=== PATIENT | female | born 1965 | race Caucasian/White ===

== ENCOUNTER 2016-08-12 21:49 | Observation (INO) | payer OTHER ==
[~2016-08-12] VITALS: Ht 167.6 cm; Wt 80.0 kg
[2016-08-13] VITALS (11 sets, daily range): BP systolic 94–136; BP diastolic 49–78
--- NOTE | 2016-08-13 00:06 | DIAGNOSTIC IMAGING REPORT ---
PROCEDURE: US ABDOMEN ULTRASOUND-LIMITED INDICATION: Right upper quadrant pain, initial encounter TECHNIQUE: Yepez scale and color Doppler sonographic images of the abdomen were obtained. COMPARISON: None. FINDINGS: Gallbladder packed with gallstones, associated with thickened gallbladder wall (4.2 mm) and gallbladder wall hyperemia. CBD measures 4.7 mm. Normal liver and pancreas. Aorta and IVC are patent. Normal hepatopetal flow. Right kidney measures 10.9 cm with a 2.6 cm upper pole simple cyst. IMPRESSION: 1. Multiple gallstones with wall thickening and wall hyperemia suggestive of acute cholecystitis 2. Right renal cyst
--- NOTE | 2016-08-13 00:14 | ED ORDER SUMMARY ---
..... Patient: ABRAHAN MCKNIGHT OrderSheet [facility] VisitID: [id number] [place] [address] 51y, F Registration Date/Time: 08/12/2016 ORDER SHEET Weight: 78.4 kg (stated) Allergies: Percocet GENERAL ORDERS: US Abdomen Limited (No) Urgent (22:24 08/12/2016 HBivens A.R.N.P.) (Ack 22:25 [facility]) (23:51 Jordan) CBC w Diff Urgent (22:24 08/12/2016 HBivens A.R.N.P.) (Ack 22:25 [facility]) (22:42 RCollier R.N.) CMP Urgent (22:08/12/2016 HBivens A.R.N.P.) (Ack 22:25 [facility]) (22:42 RCollier R.N.) UA-Culture if indicated Urgent (22:24 08/12/2016 HBivens A.R.N.P.) (Ack 22:25 [facility]) (0:25 RCollier R.N.) Amylase Urgent (22:08/12/2016 HBivens A.R.N.P.) (Ack 22:25 [facility]) (22:42 RCollier R.N.) Lipase Urgent (22:08/12/2016 HBivens A.R.N.P.) (Ack 22:25 [facility]) (22:42 RCollier R.N.) Urine Drug Screen Urgent (22:08/12/2016 HBivens A.R.N.P.) (22:25 HBivens A.R.N.P.) (Cancelled: Other22:25 HBivens A.R.N.P.) (Ack 22:25 [facility]) MEDICATION ORDERS: GI Cocktail WHITE PO 30 mL with Lidocaine Viscous Mouth/Throat 15 mL, Maalox Plus Oral 15 mL (NOW) (22:23 08/12/2016 HBivens A.R.N.P.) (Ack 22:25 RCollier R.N.) (22:40 RCollier R.N.) Nicoderm Topical 21 mg (NOW) (00:25 08/13/2016 RCollier R.N. per protocol) (0:25 RCollier R.N.) IV FLUIDS: Toradol IV 30 mg (NOW) (22:23 08/12/2016 HBivens A.R.N.P.) (Ack 22:25 RCollier R.N.) (22:41 RCollier R.N.) IV Saline Lock (22:24 08/12/2016 HBivens A.R.N.P.) (Ack 22:25 RCollier R.N.) Zofran IV 4 mg (NOW) (22:41 08/12/2016 RCollier R.N. verbal order read back to HBivens A.R.N.P.) (22:42 RCollier R.N.) Morphine IV 4 mg (PRN pain > 5/10 every 2 hours) (00:14 08/13/2016 Jeffrey Stewart) (Ack 0:15 RCollier R.N.) ORDER SHEET NOTES: [Electronically signed by Rona Browning R.N. (00:49 08/13/2016)] [Electronically signed by Sidra Villarreal.R.N.PLance (13:50 08/14/2016)] [Electronically locked/signed by Rona Browning R.N. (00:49 08/13/2016)]
--- NOTE | 2016-08-13 00:14 | ED ORDER SUMMARY ---
..... Patient: ABRAHAN MCKNIGHT OrderSheet [facility] VisitID: [id number] [place] [address] 51y, F Registration Date/Time: 08/12/2016 ORDER SHEET Weight: 78.4 kg (stated) Allergies: Percocet GENERAL ORDERS: US Abdomen Limited (No) Urgent (22:24 08/12/2016 HBivens A.R.N.P.) (Ack 22:25 [facility]) (23:51 Jordan) CBC w Diff Urgent (22:24 08/12/2016 HBivens A.R.N.P.) (Ack 22:25 [facility] Operator) (22:42 RCollier R.N.) CMP Urgent (22:08/12/2016 HBivens A.R.N.P.) (Ack 22:25 [facility]) (22:42 RCollier R.N.) UA-Culture if indicated Urgent (22:24 08/12/2016 HBivens A.R.N.P.) (Ack 22:25 [facility] Operator) (0:25 RCollier R.N.) Amylase Urgent (22:08/12/2016 HBivens A.R.N.P.) (Ack 22:25 [facility] Ed[facility] Operator) (22:42 RCollier R.N.) Lipase Urgent (22:08/12/2016 HBivens A.R.N.P.) (Ack 22:25 [facility] Operator) (22:42 RCollier R.N.) Urine Drug Screen Urgent (22:08/12/2016 HBivens A.R.N.P.) (22:25 HBivens A.R.N.P.) (Cancelled: Other22:25 HBivens A.R.N.P.) (Ack 22:25 [facility]) MEDICATION ORDERS: GI Cocktail WHITE PO 30 mL with Lidocaine Viscous Mouth/Throat 15 mL, Maalox Plus Oral 15 mL (NOW) (22:23 08/12/2016 HBivens A.R.N.P.) (Ack 22:25 RCollier R.N.) (22:40 RCollier R.N.) Nicoderm Topical 21 mg (NOW) (00:25 08/13/2016 RCollier R.N. per protocol) (0:25 RCollier R.N.) IV FLUIDS: Toradol IV 30 mg (NOW) (22:23 08/12/2016 HBivens A.R.N.P.) (Ack 22:25 RCollier R.N.) (22:41 RCollier R.N.) IV Saline Lock (22:24 08/12/2016 HBivens A.R.N.P.) (Ack 22:25 RCollier R.N.) Zofran IV 4 mg (NOW) (22:41 08/12/2016 RCollier R.N. verbal order read back to HBivens A.R.N.P.) (22:42 RCollier R.N.) Morphine IV 4 mg (PRN pain > 5/10 every 2 hours) (00:14 08/13/2016 Jeffrey Stewart) (Ack 0:15 RCollier R.N.) ORDER SHEET NOTES: [Electronically signed by Rona Browning R.N. (00:49 08/13/2016)] [Electronically signed by Sidra Villarreal.R.N.PLance (13:50 08/14/2016)] [Electronically locked/signed by Rona Browning R.N. (00:49 08/13/2016)]
--- NOTE | 2016-08-13 00:14 | ED NURSING NOTES ---
Clinical Report - Nurses [facility] [place] [address] 08/12/2016 21:51 [id number] TRI[facility] Triage time 22:10. Acuity: LEVEL 4. Chief Complaint: ABDOMINAL PAIN and NAUSEA. Alert. No acute distress. --22:15 Rona Browning R.N. 22:10 08/12/16. BP: 135/79. HR: 79. RR: 16. O2 saturation: 96% on room air. Temp: 98.6 F (oral). Chavarria-Lu pain scale: 4/10. --22:15 Rona Browning R.N. Weight: 78.4 kg stated. Height/Length: 63 inches Per Patient. BMI: 30.6. --22:14 Rona Browning R.N. Medications None. --22:12 Rona Browning R.N. Allergies Percocet.(itching) --22:12 Rona Browning R.N. History Arrived by private vehicle. Historian: patient. Primary physician (Yumiko). ( pt has had pain for 7 months. saw MD, had upper GI scope on 06-26-16, missed follow up appointment and pain became worse today). Onset. (about 7 months ago). 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 PAST MEDICAL HX: Immunizations: up-to-date. SOCIAL HX: Heavy tobacco smoker- 1-2 packs per day. Occasional alcohol use. No drug use. NUTRITIONAL RISK ASSESSMENT: The nutritional risk assessment revealed no deficiencies. FUNCTIONAL ASSESSMENT: Functional assessment: no impairments noted. --22:15 Rona Browning R.N. PROBLEMS: Chronic Back Pain. Reflux. --22:13 Rona Browning R.N. ADDITIONAL SURGERIES: Back Surgery. Hysterectomy. Knee Surgery. Shoulder Surgery. Upper GI scope. --22:13 Rona Browning R.N. Interventions ID band on patient. To treatment room. --22:15 Rona Browning R.N. PHYSICAL ASSESSMENT Ambulatory to room. Patient gowned. GENERAL / NEURO / PSYCH: Alert. Oriented X 4. Appears in no acute distress. HEENT: Mucous membranes are pink. RESPIRATORY: Respirations not labored. CVS: Capillary refill less than 2 seconds. SKIN: Skin is warm and dry. --22:15 Rona Browning R.N. NURSING PROGRESS NOTES Head of bed elevated. Two patient identifiers checked. Call light placed in reach. Side rails up x 1. Bed placed in lowest position. Brakes of bed on. --22:15 Rona Browning R.N. Patient ready for evaluation- chart flagged. --22:16 Rona Browning R.N. 22:30 08/12/2016 GI COCKTAIL WHITE (Simethicone) PO Oral Suspension 30 mL given. Allergies verified and confirmed 5 rights. --22:40 Rona Browning R.N. 22:35 08/12/2016 Site #1 started via IV in the right antecubital space with an 20g angiocath, with aseptic technique and good blood return; one attempt. Blood drawn: rainbow set. Labeled in the presence of the patient and sent to the lab. Saline lock flushed with 10 mL saline. --22:40 Rona Browning R.N. 22:39 08/12/2016 Zofran (Ondansetron HCl) IVP 4 mg given over 30 second(s) via site #1. Allergies verified and confirmed 5 rights. IV patency established. IV site checked: no pain, redness, or swelling. IV flushed thoroughly pre- and post-medication administration. IVP given by RN. --22:42 Rona Browning R.N. 22:40 08/12/2016 Toradol IVP 30 mg given over 1 minute(s) via site #1. Allergies verified and confirmed 5 rights. IV patency established. IV site checked: no pain, redness, or swelling. IV flushed thoroughly pre- and post-medication administration. IVP given by RN. --22:41 Rona Browning R.N. Patient ID band checked for patient name and birthdate: patient confirmed. Instructions provided to collect clean catch urine and patient verbalized understanding. Clean catch urine collected with return of ruth-colored clear urine; sample sent to lab. Specimen labeled in the presence of the patient. --00:22 Rona Browning R.N. 00:25 08/13/2016 NICODERM Topical Patch/Pad 21 mg. Applied to the left upper back. Allergies verified and confirmed 5 rights. --00:25 Rona Browning R.N. 00:25 08/13/16. BP: 111/64. HR: 75. RR: 15. O2 saturation: 98% on room air. Pain level now: 0/10. Additional comments: pt talking on the phone, laughing. refuses Morphine at this time, states "I'm fine". --00:27 Rona Browning R.N. 00:47 08/13/2016 Site #[address] upon admission. Flushed with 10 mL saline. --00:47 Rona Browning R.N. DISPOSITION / DISCHARGE Report was given to a nurse via a phone call. Report included patient's care, treatment, medications, reviewed medication reconcilliation, and condition (including any recent changes or anticipated changes). All questions were answered. Report was acknowledged. --00:37 Rona Browning R.N. 00:37 08/13/16. BP: 103/55. HR: 65. RR: 15. O2 saturation: 98% on room air. Pain level now: 0/10. --00:38 Rona Browning R.N. Admitted to Acute Care. Transported via stretcher by transport team with IV. Patient's personal items include: shoes, clothing; items were placed in belongings bag and transported with the patient. Collection of belongings was witnessed by 1 nurse. --00:48 Rona Browning R.N. Locked/Released at 08/13/2016 0:49 by Rona Browning R.N.
--- NOTE | 2016-08-13 00:14 | ED CLINICAL REPORT ---
Clinical Report - Physicians/Mid Levels [facility] [address] [place] [address] 08/12/2016 21:51 Patient: ABRAHAN MCKNIGHT Time Seen: 22:18; initial patient contact, initial documentation, patient care assumed. Arrived- By private vehicle. Historian- patient. HISTORY OF PRESENT ILLNESS Chief Complaint: ABDOMINAL PAIN. At its maximum, severity described as severe. When seen in the E.D., severity described as severe. Modifying factors- worsened by food. Not relieved by anything. It is described as "pain", sharp and burning and it is described as located in the right upper quadrant and epigastric area and radiating to the upper back. This started about 7 months ago and is still present and worsening. It was abrupt in onset and has been intermittent. The patient has had nausea. No loss of appetite, vomiting or diarrhea. No additional abdominal pain. No recent travel. Similar symptoms previously: Chronically, milder. Recent medical care: The patient was seen recently in the office. ( had upper gi scope done in jun, found mild burn ring on bottom of esophagus). REVIEW OF SYSTEMS No constipation, black stools, hematemesis, difficulty with urination or pain with urination. No urinary frequency, fever, chest pain or difficulty breathing. Denies current . All systems otherwise negative, except as recorded above. PAST HISTORY See nurses notes. PROBLEMS: Chronic Back Pain. Reflux. --22:13 Rona Browning R.N. ADDITIONAL SURGERIES: Back Surgery. Hysterectomy. Knee Surgery. Shoulder Surgery. Upper GI scope. --22:13 Rona Browning RJeremy. SOCIAL HISTORY Heavy tobacco smoker. Occasional alcohol use. No drug use. No recent travel. Is a local resident. FAMILY HISTORY Negative. ADDITIONAL NOTES The nursing notes have been reviewed with agreement regarding the chief complaint, HPI, ROS, PMH and patient medications and allergies. PHYSICAL EXAM Vital Signs: 08/12/2016 22:10 BP: 135/79. HR: 79. RR: 16. O2 saturation: 96%. Temp: 98.6 F. Chavarria-Lu pain scale: 4/10. Have been reviewed as normal and appear to be correct. Appearance: Alert. Oriented X3. No acute distress. Eyes: Pupils equal, round and reactive to light. Eyes normal inspection. Neck: Normal inspection. Neck supple. CVS: Normal heart rate and rhythm. Heart sounds normal. Pulses normal. Respiratory: No respiratory distress. Breath sounds normal. Chest nontender. Abdomen: Soft. Mild tenderness in the right upper quadrant and epigastric area. Bowel sounds normal. No organomegaly. No mass. Tenderness present. Back: Normal inspection. Skin: Skin warm and dry. Normal skin color. No rash. Normal skin turgor. Extremities: Extremities exhibit normal ROM. No lower extremity edema. Neuro: Oriented X 3. No motor deficit. No sensory deficit. PROGRESS AND PROCEDURES Course of Care: 22:42 08/12/16. reported off to Dr Hutchinson whom is assuming care. Differential Diagnosis: I considered gastritis, peptic ulcer disease, gastroesophageal reflux disease, biliary colic, cholecystitis, cholelithiasis, hepatitis, pancreatitis, common bile duct obstruction, cholangitis, bile leak and hernia as a possible cause of abdominal pain in this patient. This is a partial list of diagnoses considered. Above considerations are based on history, physical exam, laboratory data and other information. Differential diagnosis was discussed with patient. Disposition: Condition: good and stable. (Electronically signed by Sidra Villarreal A.R.N.P. 08/14/2016 13:50)
--- NOTE | 2016-08-13 05:56 | NUR ---
Pt arrived to unit at 0100, oriented to room and made as comfortable as possible. Pt slept for rest of shift. No complaints of pain or nausea upon arrival to unit. VSS on room air. NPO since midnight. Bowel sounds present. Pre-op packet in chart.
--- NOTE | 2016-08-13 07:13 | CONSULTATION REPORT ---
DATE OF CONSULTATION: 08/13/2016 CHIEF COMPLAINT: 1. Right upper quadrant abdominal pain HISTORY OF PRESENT ILLNESS: A 51-year-old female with right upper quadrant abdominal pain, which began in January/February of 2016. Initially it was on and off occurring maybe 2 to 3 times per week. Then it became more and more prominent on a daily basis, which was relieved by lying down. Over a period of time, the pain worsened little by little. She eventually saw Dr. Viramontes at the [facility] who performed upper GI endoscopy. The patient was noted to have a Schatzki ring and never had an ultrasound. The pain became so severe yesterday that she sought medical treatment in the emergency department. She complained of nausea and chills, but no fever or vomiting. The pain is located in the right upper quadrant radiating into her back and epigastrium. She denies any tatiana-colored stool or dark urine. ALLERGIES: 1. PERCOCET causes her itching. MEDICATIONS: She is presently on no medications. MEDICAL/SURGICAL HISTORY: Significant for tubal ligation, hysterectomy, bilateral oophorectomy, bilateral shoulder surgeries, left knee repair ACL, she is status post L4-L5 diskectomy. SOCIAL HISTORY: She is . She has 2 sons, 1 daughter that are alive and well. The patient smokes one half to 1 pack of cigarettes a day, does not drink alcohol, drinks 16-20 ounces of coffee per day. Does not use recreational drugs. She is a housewife. FAMILY HISTORY: Mother age 72 of complications of heart disease, diabetes. Father at age unknown, complications of alcohol abuse, cirrhosis. Six brothers and 3 sisters, all alive and well. REVIEW OF SYSTEMS: She is G3, P0, AB 3, Menarche age she cannot remember. First full-term age 20. Last menstrual period 2001. Last Pap smear in 2001. Last mammogram, she has never had one. Colonoscopy, never had one. Denies any history of hepatitis, jaundice, or rheumatic fever, blood transfusion, heart murmurs requiring antibiotics or bleeding tendencies. Remaining 12-point review of systems is negative. PHYSICAL EXAMINATION: GENERAL: The patient is awake, alert, conversant and does not appear to be in any acute distress. VITAL SIGNS: Blood pressure is 116/64, pulse 72, respirations 18, temperature is 97.5. HEENT: Normocephalic, atraumatic. Pupils equal and reactive. No scleral icterus. External auditory canals clear. No nasal septal defect or discharge. Throat is clear. Moist mucous membranes. NECK: Supple. No JVD, carotid bruit or adenopathy. LUNGS: Clear. No rales, rhonchi, or wheezing. Room air O2 saturation 96%. HEART: Regular rhythm, no murmurs. ABDOMEN: Nondistended. Positive bowel sounds. Minimal tenderness right upper quadrant. No masses appreciable. No hepatosplenomegaly. EXTREMITIES: No pretibial or ankle edema. SKIN: Warm and dry with no peripheral cyanosis, no evidence of icterus. NEUROLOGIC: The patient is grossly intact with no focal neurological deficits. LYMPHATICS: No cervical, supraclavicular, axillary, or groin adenopathy. LAB/IMAGING: White count 11.3, hemoglobin and hematocrit 14.8 and 42.2 respectively. Electrolytes: Sodium 141, potassium 4.3, chloride 102, bicarbonate 25, glucose 90, BUN 14, creatinine 0.9, total bilirubin 0.2, alkaline phosphatase 73, lipase 321. Ultrasound showing multiple stones, gallbladder wall thickening and hyperemia suggestive of acute cholecystitis, cholelithiasis. IMPRESSION: 1. Symptomatic cholecystitis, possible acute cholecystitis PLAN: Laparoscopic cholecystectomy. The procedure has been explained to the patient, including potential risk, but not exclusive of, hemorrhage, transfusion, conversion to open procedure, bile leak, damage to local structures, damage to major ductal system requiring rerouting of the small intestine to the liver, pancreatitis, retained stone, pulmonary embolus, pneumonia just to name a few. The patient understands and agrees to proceed and at this point, all questions answered to her satisfaction and we will schedule her urgently.
--- NOTE | 2016-08-13 15:52 | NUR ---
PT. LEFT FOR OR AT 1500 WITH BOARDING PASS, EMPTIED BLADDER. VSS
--- NOTE | 2016-08-13 16:45 | DIAGNOSTIC IMAGING REPORT ---
PROCEDURE: XR INTRAOPERATIVE LAP ISMAEL INDICATION: IOC TECHNIQUE: Intraoperative fluoroscopy provided for Dr. Faulkner performing an intraoperative cholangiogram following cholecystectomy. Total fluoroscopy time 0.08-minute Cumulative dose 2.7 mGy. COMPARISON: None. FINDINGS: Two intraoperative fluoroscopic spot images of the right upper quadrant of the abdomen demonstrate cannulation of the cystic duct stump and opacification of the intrahepatic and extrahepatic biliary tree. There are no filling defects. There is normal passage of contrast into the duodenum. IMPRESSION: 1. Negative intraoperative cholangiogram.
[2016-08-13] MEDS ORDERED: HYCET1 ML PO (16:46)
--- NOTE | 2016-08-13 16:47 | Provider's Discharge Care Plan ---
Problem, Goal, Plan Problem List 1. S/P LAP ISMAEL Goals: Improve disease control, Therapeutic intervention Instructions: Follow up as directed, Take meds as directed
--- NOTE | 2016-08-13 16:47 | Provider's Discharge Care Plan ---
Problem, Goal, Plan Problem List 1. S/P LAP ISMAEL Goals: Improve disease control, Therapeutic intervention Instructions: Follow up as directed, Take meds as directed
--- NOTE | 2016-08-13 17:07 | NUR ---
WHITE METAL NOSE JEWERLY REMOVED, PLACED IN DENTURE CUP, LABELED AND TAKE TO PACU.
--- NOTE | 2016-08-13 17:08 | NUR ---
PATIENT ARRIVED TO PACU AT 1657. SPONT RESP. AROUSABLE. VITALS STABLE. HUMIDIFIED O2 ADMINISTERED. PATIENT PAINFUL. FENTENYL ADMINISTERED BY ANESTHESIA PROVIDER. PATIENT NAUSEATED. ONDANSETRON IV ADMINISTERED PER ORDERS BY RN. PATIENT NOW RESTING QUIETLY. WILL CONTINUE TO MONITOR.
--- NOTE | 2016-08-13 18:37 | NUR ---
PT. UP TO FLOOR AT 1830, BT HYPO, LUNG SOUNDS CTAB, DIMINISHED IN BASES AND HRR. PATIENT DROWSY, VSS, 02 SATS 97% ON2L NC, STATES MILD PAIN TO BACK, GIVEN WARM BLANKET FOR ABD. AND POSITIONED TO WHERE PATIENT STATES BACK PAIN IS TOLERABLE. WCTM
--- NOTE | 2016-08-13 19:20 | OPERATIVE REPORT ---
DATE OF SURGERY: 08/13/2016 SURGEON: Yonatan Faulkner III, MD SERVICE ORDER CLERK: Rafy Gonzalez MD PREOPERATIVE DIAGNOSES: 1. Symptomatic cholelithiasis 2. Subacute cholecystitis POSTOPERATIVE DIAGNOSES: 1. Symptomatic cholelithiasis 2. Subacute cholecystitis PROCEDURES PERFORMED: 1. Laparoscopic cholecystectomy 2. Fluoroscopic intraoperative cholangiogram ANESTHESIA: General endotracheal. COMPLICATIONS: No intraoperative or anesthetic complications. ESTIMATED BLOOD LOSS: None. FLUIDS: 600 mL of Lactated Ringer's. PATHOLOGY SPECIMEN: Sent to laboratory, gallbladder and contents. INDICATIONS: A 51-year-old female with several-month history of progressive right upper quadrant abdominal pain, worsened, came to the emergency department, was noted to have a white count of 11,000, ultrasound of the gallbladder showed multiple stones, thickened gallbladder wall and hyperemia consistent with acute cholecystitis. On physical examination, she had a negative Allen sign. She was scheduled for a laparoscopic cholecystectomy. SURGICAL FINDINGS: The patient noted to have cholelithiasis. Fluoroscopic intraoperative cholangiogram showed free flow of contrast material into the duodenum. No evidence of obstruction. Visualization of the hepatic radicles, hepatic duct, and common bile. The patient was noted to have an edematous back wall of the gallbladder. SURGICAL TECHNIQUE: The patient brought to the operating room, placed in the dorsal supine position where she underwent general endotracheal anesthesia by the anesthesiology department. After proper anesthesia had taken effect, patient's abdomen was prepped using Betadine and draped in a sterile fashion. An infraumbilical incision carried down through skin, subcutaneous tissue. A Veress needle was inserted through this site into the abdominal cavity and after ascertaining its appropriate position with suction irrigation pneumoperitoneum obtained using CO2 insufflation to approximately 14-15 mmHg pressure. Once this pressure was reached, the Veress needle was removed, replaced with a 10 mm trocar. The trocar removed leaving the sleeve behind, through which a laparoscopic video camera was introduced into abdominal cavity. Under direct visualization, a separate 10 mm trocar was placed in subxiphoid region, two 5 mm trocars were placed in the anterolateral abdominal wall, approximately 3-4 fingerbreadths below the costal margin. Each entered the abdominal cavity under direct visualization. The gallbladder identified, grasped, retracted cephalad. The cystic duct was circumferentially isolated using a combination of blunt dissection and electrocautery. A clip was placed at the junction of the neck of the gallbladder and the cystic duct. A small incision made in the anterior surface of cystic duct. A percutaneous cholangiogram catheter was threaded through the anterior abdominal wall into the cystic duct, clipped into position, a fluoroscopic intraoperative cholangiogram obtained with the aforementioned findings noted. Once completed, the percutaneous cholangiogram catheter was retrieved from the cystic duct and the abdominal cavity. The distal cystic duct was clipped in continuity, divided. The cystic artery identified, clipped in continuity, divided. The gallbladder was taken down from its bed in a retrograde fashion using electrocautery dissection. Once the gallbladder was completely freed, it was transferred to a sterile specimen container bag and retrieved from the abdominal cavity through the subxiphoid port and sent to pathology. Gallbladder bed was inspected for hemostasis. Assurance of proper hemostasis, the right upper quadrant was irrigated copiously with warm normal saline, antibiotic solution, the irrigant suctioned out. Approximately 30 mL of 0.5% Marcaine with epinephrine was placed over the right and left dome of the liver for postoperative analgesia. The pneumoperitoneum released and all trocars removed from the abdominal cavity. All trocar sites approximated using 4-0 subdermal Polysorb and Steri-Strips. Sterile pressure occlusive dressing was placed over each site. The patient tolerated procedure well, was extubated, transferred to the recovery room in stable condition.
--- NOTE | 2016-08-13 22:00 | NUR ---
PATIENT HAS BEEN DILIGENTLY DOING HER LAPS AROUND THE GRACE TO SHIFT HER ABDO DISCOMFORT.WAS INITIALLY RELUCTANT TO HAVE PAIN MEDS BUT EVENTUALLY HAD A COUPLE OF DOSES OF MEPERIDINE TO HELP HER SETTLE. DRESSINGS INTACT AND NAUSEA APPEARED TO HAVE EASED FOR NOW.
[2016-08-14 03:00] VITALS: BP 106/58
[2016-08-14 04:13] VITALS: BP 153/58
[2016-08-14 06:38] VITALS: BP 124/62
--- NOTE | 2016-08-14 08:58 | NUR ---
RECEIVED PT SITTING AT THE EDGE OF THE BED, AWAKE,ALERT, ORIENTED, COHERENT, COOPERATIVE. V/S TAKEN AND RECORDED. ASSESSMENT DONE. PAIN IS 1/10 LEVEL " I'M GOOD" PT STATES. PT TOLERATED HER SOFT DIET WELL. DENIES NAUSEA AND VOMITING. SEEN AND EXAMINED BY DR GTZ EARLIER WITH ORDERS MADE AND CAARRIED OUT. FOR HOME TODAY. PLAN OF CARE INFORMED PT, UNDERSTOOD.
--- NOTE | 2016-08-14 09:40 | NUR ---
[employer] PRESC., GIVEN TO PT. ASKED PT IF SHE HAS MEDICATIONS AT OUR PHARMACY " I DON'T HAVE ANY AND I DON'T TAKE MEDICATIONS AT HOME" PT STATES. EMPHJASIZING ON KEEPING THE DRESSINGS CLEAN, DRY AND INTACT, CONITNUE AMBULATING, INCREASED IN FLUID INTAKE. QUESTIONS AND CONCERNS ANSWERED. PT WENT HOME WITH THE AT 0948, ASSISTED BY MS NASH TO THE LOBBY, PT PREFERS TO AMBULATE.
--- NOTE | 2016-08-14 13:50 | ED MAR SUMMARY ---
..... Medication Administration Record [facility] [address] [place] [address] Patient: ABRAHAN MCKNIGHT Visit ID: [id number] 51y, F Weight: 78.4 kg Height/Length: 63 in BMI: 30.6 ALLERGIES: Percocet Given 22:30 08/12/2016 Rona Browning R.N. Medication Administered: GI COCKTAIL WHITE [PO] (SIMETHICONE), Dose: 30 mL Oral Suspension PO. Medication Ordered: GI Cocktail WHITE PO 30 mL with Lidocaine Viscous Mouth/Throat 15 mL, Maalox Plus Oral 15 mL (NOW). Given 22:39 08/12/2016 Rona Browning R.N. Medication Administered: ZOFRAN [IVP] (ONDANSETRON HCL), Dose: 4 mg IVP over 30 second(s), Site: #1 right AC. Medication Ordered: Zofran IV 4 mg (NOW). Given 22:40 08/12/2016 Rona Browning R.N. Medication Administered: TORADOL [IVP], Dose: 30 mg IVP over 1 minute(s), Site: #1 right AC. Medication Ordered: Toradol IV 30 mg (NOW). Given 00:25 08/13/2016 Rona Browning R.N. Medication Administered: NICODERM [TOPICAL], Dose: 21 mg Patch/Pad Topical. Medication Ordered: Nicoderm Topical 21 mg (NOW).
--- NOTE | 2016-08-14 13:50 | ED MED RECONCILIATION SUMMARY ---
Patient: ABRAHAN MCKNIGHT Medication Reconciliation Report [facility] VisitID: [id number] [address] [place] [address] 51y, F Registration Date/Time: 08/12/2016 Weight: 78.4 kg Height/Length: 63 in. BMI: 30.6 ALLERGIES: Percocet The patient's Home Medications are listed below: NONE. The source(s) of the original Home Medication information: Not obtained. The following Medications were given to the patient in the Emergency Department: GI COCKTAIL WHITE [PO] PO 30 mL, administered: 08/12/2016 10:30:00 PM Toradol [IVP] IVP 30 mg, administered: 08/12/2016 10:40:00 PM Zofran [IVP] IVP 4 mg, administered: 08/12/2016 10:39:00 PM NICODERM [TOPICAL] Topical 21 mg, administered: 08/13/2016 12:25:00 AM The following Medications were prescribed to the patient: None.
--- NOTE | 2016-08-14 13:50 | ED MAR SUMMARY ---
..... Medication Administration Record [facility] [address] [place] [address] Patient: ABRAHAN MCKNIGHT Visit ID: [id number] 51y, F Weight: 78.4 kg Height/Length: 63 in BMI: 30.6 ALLERGIES: Percocet Given 22:30 08/12/2016 oRna Browning R.N. Medication Administered: GI COCKTAIL WHITE [PO] (SIMETHICONE), Dose: 30 mL Oral Suspension PO. Medication Ordered: GI Cocktail WHITE PO 30 mL with Lidocaine Viscous Mouth/Throat 15 mL, Maalox Plus Oral 15 mL (NOW). Given 22:39 08/12/2016 Rona Browning R.N. Medication Administered: ZOFRAN [IVP] (ONDANSETRON HCL), Dose: 4 mg IVP over 30 second(s), Site: #1 right AC. Medication Ordered: Zofran IV 4 mg (NOW). Given 22:40 08/12/2016 Rona Browning R.N. Medication Administered: TORADOL [IVP], Dose: 30 mg IVP over 1 minute(s), Site: #1 right AC. Medication Ordered: Toradol IV 30 mg (NOW). Given 00:25 08/13/2016 Rona Browning R.N. Medication Administered: NICODERM [TOPICAL], Dose: 21 mg Patch/Pad Topical. Medication Ordered: Nicoderm Topical 21 mg (NOW).
--- NOTE | 2016-08-14 13:50 | ED MED RECONCILIATION SUMMARY ---
Patient: ABRAHAN MCKNIGHT Medication Reconciliation Report [facility] VisitID: [id number] [address] [place] [address] 51y, F Registration Date/Time: 08/12/2016 Weight: 78.4 kg Height/Length: 63 in. BMI: 30.6 ALLERGIES: Percocet The patient's Home Medications are listed below: NONE. The source(s) of the original Home Medication information: Not obtained. The following Medications were given to the patient in the Emergency Department: GI COCKTAIL WHITE [PO] PO 30 mL, administered: 08/12/2016 10:30:00 PM Toradol [IVP] IVP 30 mg, administered: 08/12/2016 10:40:00 PM Zofran [IVP] IVP 4 mg, administered: 08/12/2016 10:39:00 PM NICODERM [TOPICAL] Topical 21 mg, administered: 08/13/2016 12:25:00 AM The following Medications were prescribed to the patient: None.
== END 2016-08-14 09:45 | disposition home or self-care (01) ==
LOC: ED SRH 21:49 → ACUTE2 SRH 23:46 → TRANS SRH 23:46 → ACUTE2 SRH 08-13 00:57
PROVIDERS: ADMIT Specialist
PROC: 0FT44ZZ Resection of Gallbladder, Percutaneous Endoscopic Approach (ICD-10-PCS; principal; 2016-08-13 15:15)
PROC: BF101ZZ Fluoroscopy of Bile Ducts using Low Osmolar Contrast (ICD-10-PCS; principal; 2016-08-13 15:15)
DX: K80.00 Calculus of gallbladder with acute cholecystitis without obstruction (principal); R11.0 Nausea
CPT/HCPCS: 29229; 29230; 29242; 29253; 29259; 50002; 60001; 70002; 80102; 80212; 80248; 82332; 82669; 82794; 82807; 83338; 83339; 83348; 83587; 83920; 83937; 83982; 84038; 90004; 90074; 90100; 92235; 92520; 92530; 92540; 95059